=== PATIENT | female | born 1960 | race African-American/Black ===

== ENCOUNTER 2017-10-29 21:25 | Emergency (ER) | payer OTHER ==
[~2017-10-29] VITALS: Ht 160 cm; Wt 118.1 kg
[~2017-10-29 21:25] MED LIST: TYLENOL WITH C1 EACH PO
[2017-10-30] MEDS ORDERED: MOTRIN600 MG PO (00:34)
[2017-10-30] MEDS ORDERED: FLEXERIL10 MG PO (00:34)
[2017-10-30 00:51] VITALS: BP 124/78
== END 2017-10-30 00:55 | disposition home or self-care (01) ==
LOC: EME 21:25
DX: S09.90XA Unspecified injury of head, initial encounter (principal); S63.502A Unspecified sprain of left wrist, initial encounter; S39.012A Strain of muscle, fascia and tendon of lower back, initial encounter; V43.52XA Car driver injured in collision with other type car in traffic accident, initial encounter; Y92.410 Unspecified street and highway as the place of occurrence of the external cause; Z88.0 Allergy status to penicillin; Z88.5 Allergy status to narcotic agent; Z88.6 Allergy status to analgesic agent
CPT/HCPCS: 70450; 72128; 73030; 73110; 99281; 99284

== ENCOUNTER 2018-03-11 10:45 | Emergency (ER) | payer OTHER ==
[~2018-03-11] VITALS: Ht 160 cm; Wt 118.0 kg
[~2018-03-11 10:45] MED LIST changes: +FLEXERIL10 MG PO; +MOTRIN600 MG PO
[2018-03-11 11:15] LABS: HEMATOCRIT 45.1 % (36.0-46.0); HEMOGLOBIN 14.7 G/DL (11.9-15.5); MCH 26.7 PG (29.0-34.0); MCHC 32.6 G/DL (30.0-36.0); MCV 81.9 FL (83-99); PLATELET COUNT 287 K/uL (156-360); RBC DIS.WIDTH-SD 41.7 % (39-53); RED BLOOD COUNT 5.51 M/uL (3.80-5.20); WHITE BLOOD COUNT 10.1 K/uL (4.1-10.2)
[2018-03-11 11:25] LABS: ALBUMIN 4.1 g/dL (3.2-4.8)
[2018-03-11 11:26] LABS: CHLORIDE 106 mEq/L (99-109); POTASSIUM 4.1 mEq/L (3.7-5.4); SODIUM 141 mEq/L (136-147)
[2018-03-11 11:28] LABS: GLUCOSE 103 mg/dL (70-99); TOTAL PROTEIN 7.6 g/dL (6.4-8.3)
[2018-03-11 11:30] LABS: TOTAL BILIRUBIN 0.7 mg/dL (0.0-1.0)
[2018-03-11 11:31] LABS: ALKALINE PHOSPHATASE 67 IU/L (3-129)
[2018-03-11 11:32] LABS: CREATININE 0.8 mg/dL (0.6-1.3); GFR ESTIMATE (CALCULATED) > 59 mL/min/
[2018-03-11 11:33] LABS: AST (GOT) 20 IU/L (2-34); UREA NITROGEN (BUN) 11 mg/dL (9-23)
[2018-03-11 11:34] LABS: ALT (GPT) 23 IU/L (3-49)
[2018-03-11 11:35] LABS: LIPASE 24 U/L (1.0-51.0)
[2018-03-11 11:47] LABS: APPEARANCE SL.HAZY ((CLEAR)); BILIRUBIN NEGATIVE; BLOOD SMALL; COLOR YELLOW ((YELLOW)); GLUCOSE (STRIP) NEGATIVE; KETONES NEGATIVE; LEUKOCYTES NEGATIVE; NITRITE NEGATIVE; PROTEIN (STRIP) NEGATIVE; SPECIFIC GRAVITY 1.023 (1.000-1.030); UROBILINOGEN 0.2 MG/DL (0.2-1.0)
[2018-03-11 11:51] LABS: BACTERIA NONE SEEN /HPF; EPITHELIAL CELLS 2+ /HPF; HYALINE CASTS 0-5 /LPF; MUCUS 1+ /LPF; RED BLOOD CELLS 0-5 /HPF (0-5); UCUL ADDED? NO; WHITE BLOOD CELLS 0-5 /HPF (0-5)
[2018-03-11] MEDS ORDERED: MIRALAX119 GM PO (13:39)
[2018-03-11 13:59] VITALS: BP 124/78
== END 2018-03-11 14:06 | disposition home or self-care (01) ==
LOC: EME 10:45
DX: R10.32 Left lower quadrant pain (principal); K59.00 Constipation, unspecified; S30.811A Abrasion of abdominal wall, initial encounter; I89.8 Other specified noninfective disorders of lymphatic vessels and lymph nodes; Z88.0 Allergy status to penicillin
CPT/HCPCS: 74176; 80053; 81003; 83690; 85027; 99281; 99284; J7030